=== PATIENT | female | born 1955 | race Caucasian/White ===

== ENCOUNTER 2018-10-23 06:45 | Day surgery (SDC) | payer BC ==
[~2018-10-23 06:45] MED LIST: CEFAZOLIN 2 Gram 2 GM/50 ML BAG IVPB ONE; FAMOTIDINE 20MG TABLET PO ONE; MECLIZINE 25 MG TABLET PO ONE; METOCLOPRAMIDE 10 MG TABLET PO ONE; VANCOMYCIN 1GM/200ML PREMIX 1 GM/200 ML PIGGYBACK IVPB ONE
[2018-10-23] MEDS ORDERED: DEXAMETHASONE 4 MG/ML 1ML VIAL IVP ONE (06:46)
[2018-10-23] MEDS ORDERED: DIPHENHYDRAMINE HCL 50 MG/ML VIAL IVP ONE (06:46)
[2018-10-23] MEDS ORDERED: FENTANYL PF 100MCG/2ML VIAL IV ONE (06:46)
[2018-10-23] MEDS ORDERED: MIDAZOLAM HCL 2MG/2ML VIAL IV ONE (06:46)
[2018-10-23] MEDS ORDERED: LIDOCAINE 2% MDV (20MG/ML) 20ML VIAL IV ONE (06:46)
[2018-10-23] MEDS ORDERED: TRANEXAMIC ACID 1,000 MG/10 ML ML IV ONE ×2 (06:46)
[2018-10-23] MEDS ORDERED: GLYCOPYRROLATE 0.2 MG/ML ML IV ONE (06:46)
[2018-10-23] MEDS ORDERED: PROPOFOL 10 MG/ML VIAL IV ONE (06:46)
[2018-10-23] MEDS ORDERED: ROPIVACAINE HCL (NAROPIN) /PF 5MG/ML 20ML VIAL IV ONE (06:46)
[2018-10-23 07:32] LABS: ABO GROUP O; RH TYPE POSITIVE
[2018-10-23] MEDS: CELECOXIB 100 MG CAPSULE PO ONE ×2 (07:45→07:46)
[2018-10-23 07:46] LABS: ANTIBODY SCREEN NEGATIVE (NEGATIVE)
[2018-10-23] MEDS ORDERED: RINGERS SOLUTION,LACTATED 300 ML IV ONE (09:30)
[2018-10-23] MEDS ORDERED: 0.9 % SODIUM CHLORIDE 1000ML 1,000 ML IV ONE ×3 (09:30→11:01)
[2018-10-23] MEDS ORDERED: RINGERS SOLUTION,LACTATED 1,000 ML IV ONE (09:50)
[2018-10-23] MEDS ORDERED: BUPIVACAINE 0.5% W/EPI MPF 30 ML VIAL SQ ONE (09:59)
[2018-10-23] MEDS ORDERED: MAGNESIUM HYDROXIDE 30 ML UDC PO PRN (11:01)
[2018-10-23] MEDS ORDERED: BISACODYL 10 MG SUPP RC PRN (11:01)
[2018-10-23] MEDS ORDERED: HYDROMORPHONE HCL 2 MG/ML VIAL IM PRN (11:01)
[2018-10-23] MEDS ORDERED: ACETAMINOPHEN W/ CODEINE 300MG/60MG TABLET PO PRN ×2 (11:01)
[2018-10-23] MEDS ORDERED: AL HYDROX/MAG HYDROX 30ML UD PO PRN (11:01)
[2018-10-23] MEDS ORDERED: ONDANSETRON HCL IV 4 MG/2 ML VIAL IVP PRN (11:01)
[2018-10-23] MEDS ORDERED: HYDROCODONE/APAP 10/325 TABLET PO PRN (11:01)
[2018-10-23] MEDS ORDERED: DIPHENHYDRAMINE HCL 25 MG CAPSULE PO PRN (11:01)
[2018-10-23] MEDS ORDERED: TRAMADOL HCL 50 MG TABLET PO PRN (11:01)
[2018-10-23] MEDS ORDERED: ZOLPIDEM TARTRATE 5 MG TABLET PO PRN (11:01)
[2018-10-23] MEDS ORDERED: NALOXONE 0.4 MG/1 ML VIAL IVP PRN (11:01)
[2018-10-23] MEDS ORDERED: ACETAMINOPHEN 325 MG TAB PO PRN (11:01)
[2018-10-23] MEDS ORDERED: KETOROLAC 30 MG/ML VIAL IVP PRN ×2 (11:01)
[2018-10-23] MEDS ORDERED: HYDROMORPHONE HCL 2 MG/ML VIAL IVP ONE ×2 (11:12→11:33)
[2018-10-23] MEDS ORDERED: HYDROMORPHONE HCL 2 MG/ML VIAL IM ONE (11:12)
[2018-10-23] MEDS ORDERED: CEFAZOLIN 2 Gram 2 GM/50 ML BAG IVPB SCH ×2 (11:15→12:30)
[2018-10-23] MEDS ORDERED: RIVAROXABAN 10 MG TABLET PO SCH (11:15)
[2018-10-23] MEDS ORDERED: POTASSIUM CHLORIDE/D5-0.9%NACL 20 MEQ/1,000 ML BAG IV SCH (11:15)
[2018-10-23] MEDS: 0.9 % SODIUM CHLORIDE 500ML 500 ML IV SCH ×2 (12:00→22:19)
[2018-10-23] MEDS ORDERED: PNEUM 23-VAL ADULT IM ONE (12:15)
[2018-10-23] MEDS: HYDROCODONE/APAP 10/325 TABLET PO PRN ×3 (12:48→22:57)
--- NOTE | 2018-10-23 15:47 | Rehab Evaluation ---
Patient Information - Patient Information Diagnosis: L knee OA Ordered Treatment: PT Evaluate and Treat Status: Initial Evaluation Surgery: Yes (L TKA) Date of Surgery: 10/23/18 Past Medical/Surgical Hx: PAST MEDICAL/SURGICAL HISTORY Past Surgical History TONSILS AT AGE 19 C SCOPES PMH - Respiratory Hx Respiratory Disorders Yes Hx Bronchitis Yes: IN THE PAST Hx Sleep Apnea Yes: MILD Hx of CPAP No: NOT NEEDED PER TESTING Comment: ALLERGIES PMH - Cardiovascular Hx Cardiovascular Disorders Yes Hx Hypertension Yes: ON MEDS WITH GOOD CONTROL Exercise Tolerance Good Hx of Migraines Yes: IN THE PAST X'S 2 SINUS RELATED PMH - Neuro Hx Neurological Disorders Yes PMH - GI Hx Gastrointestinal Disorders No PMH - Hx Genitourinary Disorders No Hx Age of Menopause 52 PMH - Endocrine Hx Diabetes Yes: DX'D 2008 Hx of NIDDM Yes Comment: BLOOD SUGARS "GOOD" A1C 6.1 PMH - Musculoskeletal Hx Musculoskeletal Disorders Yes Hx Arthritis Yes: KNEES PMH - Psych Hx Psychiatric Problems No PMH - Hematology/Oncology Hx Hematology/Oncology No Disorders Premorbid Status: Detail (The patient was independent with all mobility prior to surgery) Social History: Detail (The patient lives with spouse in one story house with one step at the enterance and no hand rails. The bathroom is equipped with :a walk in shower and elevated toilet. No grab bars are present in the bathroom. The patient is to borrow a shower bench. The patient has a front wheeled walker, single point cane.) Precautions: [place], Fall, Other (WBAT on the L LE) - Time With Patient Total Time Spent With Patient (Min): 30 Treatment Procedures: Detail (Gait training, Initial Evaluation low complexity) Subjective Information - Subjective Information Per Patient (The patient had no complaints of pain.) Objective Data - Mental Status Patient Orientation: Oriented x3 - Visual Perception Appears within normal limits for therapeutic activities - ROM Not within normal limits (The patient's L knee AROM was limited as to be expected s/p surgery. All other AROM was WNL.) - Strength/Tone Not within normal limits (The patient's L LE strength was not tested s/p surgery however, is functional ie: patient completed a SLR. R LE strength was WFL.) - Bed Mobility Independent (The patient was independent with supine to and from sit transfer and scooting up in bed.) - Transfers Independent (The patient was independent with sit to and from stand transfer.) - Balance Balance Sitting: Good Balance Standing: Good - Sensation Intact - Gait Detail (The patient ambulated with front wheeled walker a distance of 100 feet x 2 WBAT on the L LE with supervision for safety.) Therapy Assessment - Therapy Assessment Detail (The patient was independent with bed mobility, transfers and ambulation. Feel the patient will progress well with mobility.) Problem List - Problem List Physical Therapy Problem List: Detail (1) Decreased L knee AROM as to be expected following surgery. 2) Decreased L LE strength as to be expected following surgery.) Goals - Goals Physical Therapy Goals: 1) The patient will ambulate on stairs with supervision for safety only using proper technique. 2) The patient will be independent with TKA HEP. Prognosis - Prognosis Good Plan - Plan Physical Therapy Plan: 1-2 sessions for gait training on stairs and instruction in HEP.
[2018-10-23] MEDS: CEFAZOLIN 2 Gram 2 GM/50 ML BAG IVPB SCH (17:30)
[2018-10-23] MEDS ORDERED: TRAZODONE 50 MG TABLET PO SCH (22:00)
[2018-10-23] MEDS: CALCIUM CARB/VITAMIN D 500MG/200IU PO SCH (22:13)
[2018-10-23] MEDS: DOCUSATE SODIUM 100 MG CAPSULE PO SCH (22:13)
[2018-10-23] MEDS: BUSPIRONE 5 MG TABLET PO SCH (22:13)
[2018-10-24] MEDS: CEFAZOLIN 2 Gram 2 GM/50 ML BAG IVPB SCH ×2 (01:44→10:21)
[2018-10-24] MEDS: HYDROCODONE/APAP 10/325 TABLET PO PRN ×3 (03:56→12:40)
[2018-10-24 06:53] LABS: HEMATOCRIT 33.2 % (35.0-47.0); HEMOGLOBIN 10.5 gm/dl (11.6-16.0)
[2018-10-24 07:11] LABS: CREATININE 1.3 mg/dL (0.5-0.9)
[2018-10-24] MEDS: 0.9 % SODIUM CHLORIDE 500ML 500 ML IV SCH (07:34)
--- NOTE | 2018-10-24 08:02 | Rehab Evaluation ---
Patient Information - Patient Information Diagnosis: L knee OA Ordered Treatment: OT Evaluate and Treat Status: Initial Evaluation Surgery: Yes (L TKA) Date of Surgery: 10/23/18 Past Medical/Surgical Hx: PAST MEDICAL/SURGICAL HISTORY Past Surgical History TONSILS AT AGE 19 C SCOPES PMH - Respiratory Hx Respiratory Disorders Yes Hx Bronchitis Yes: IN THE PAST Hx Sleep Apnea Yes: MILD Hx of CPAP No: NOT NEEDED PER TESTING Comment: ALLERGIES PMH - Cardiovascular Hx Cardiovascular Disorders Yes Hx Hypertension Yes: ON MEDS WITH GOOD CONTROL Exercise Tolerance Good Hx of Migraines Yes: IN THE PAST X'S 2 SINUS RELATED PMH - Neuro Hx Neurological Disorders Yes PMH - GI Hx Gastrointestinal Disorders No PMH - Hx Genitourinary Disorders No Hx Age of Menopause 52 PMH - Endocrine Hx Diabetes Yes: DX'D 2008 Hx of NIDDM Yes Comment: BLOOD SUGARS "GOOD" A1C 6.1 PMH - Musculoskeletal Hx Musculoskeletal Disorders Yes Hx Arthritis Yes: KNEES PMH - Psych Hx Psychiatric Problems No PMH - Hematology/Oncology Hx Hematology/Oncology No Disorders Premorbid Status: Detail (The patient was independent with all mobility, meal prep, laundry and home mgmt tasks prior to surgery) Social History: Detail (The patient lives with spouse in one story house with one step at the entrance and no hand rails. The bathroom is equipped with a walk in shower and elevated toilet. No grab bars are present in the bathroom. The patient is planning to borrow a shower bench. The patient has a front wheeled walker and a single point cane. Her spouse will be assisting with laundry and meal prep after discharge.) Precautions: [place], Fall, Other (WBAT on the L LE) - Time With Patient Total Time Spent With Patient (Min): 35 Treatment Procedures: Detail (OT eval low complexity) Subjective Information - Subjective Information Per Patient Objective Data - Pain Pain Present: Yes (09/24) - Mental Status Patient Orientation: Oriented x3 - Visual Perception Appears within normal limits for therapeutic activities - ROM Within normal limits (Simon UE AROM WNL) - Strength/Tone Within normal limits (Simon UE strength WNL) - Coordination Appears within normal limits for therapeutic activities - Bed Mobility Independent (Ind with supine to sit) - Transfers Independent (Ind with sit to stand from EOB and chair heights.) - Balance Balance Sitting: Good Balance Standing: Good - Sensation Intact - Gait Detail (Pt ambulating in room with 2 wheeled walker Indly.) - ADL's/IADL's Detail (Pt educated and able to demonstrate learning of modified LE dressing techniques including doffing slipper socks and briefs and donning underwear and slip on shoes. Reviewed kitchen and shower safety and modifications, pt verbalized understanding.) Therapy Assessment - Therapy Assessment Detail (Pt is Ind with modified LE dressing techniques.) Problem List - Problem List Physical Therapy Problem List: Detail (1) Decreased L knee AROM as to be expect ed following surgery. 2) Decreased L LE strength as to be expected following surgery.) Occupational Therapy Problem List: Detail (No current IP OT problems identified.) Goals - Goals Physical Therapy Goals: 1) The patient will ambulate on stairs with supervision for safety only using proper technique. 2) The patient will be independent with TKA HEP. Occupational Therapy Goals: No current IP OT goals identified. Prognosis - Prognosis Good Plan - Plan Physical Therapy Plan: 1-2 sessions for gait training on stairs and instruction in HEP. Occupational Therapy Plan: No further IP OT recommended. Thank you for this referral.
[2018-10-24] MEDS ORDERED: RIVAROXABAN 10 MG TABLET PO SCH (10:00)
[2018-10-24] MEDS ORDERED: FERROUS SULFATE 325 MG TAB PO SCH (10:00)
[2018-10-24] MEDS: CALCIUM CARB/VITAMIN D 500MG/200IU PO SCH (10:21)
[2018-10-24] MEDS: BUSPIRONE 5 MG TABLET PO SCH (10:22)
[2018-10-24] MEDS: DOCUSATE SODIUM 100 MG CAPSULE PO SCH (10:22)
--- NOTE | 2018-10-24 10:45 | Physical Therapy Tx Note ---
Physical Therapy Tx Note - Treatment Note Tolerated: Good Total Time Spent With Patient: 25 Physical Therapy Tx Note: Detail (The patient was in bathroom when PT arrived. The patient was independent with toilet transfer. The patient ambulated independently with front wheeled walker WBAT on the L LE a distance of 102 feet x 1. The patient ambulated on 3 steps with present with use of one railing with supervision for safety. The paient completed TKA HEP including seated heel slides, ankle pumps, quad sets, hamstring sets, gluteal sets and SLR. The patient has met all inpatient PT goals and is discharged from inpatient PT.) Physical Therapy Problem List: Detail (1) Decreased L knee AROM as to be expected following surgery. 2) Decreased L LE strength as to be expected following surgery.) Physical Therapy Goals: 1) The patient will ambulate on stairs with supervision for safety only using proper technique.(Goal Met). 2) The patient will be independent with TKA HEP.(Goal Met) Physical Therapy Plan: The patient has met all inpatient PT goals and is discharged from inpatient PT. The patient is to receive Home PT.
--- NOTE | 2018-10-24 13:50 | Operative Note ---
DATE OF SURGERY: 10/23/2018 PREOPERATIVE DIAGNOSIS: End-stage arthrosis of the left knee. POSTOPERATIVE DIAGNOSIS: End-stage arthrosis of the left knee. OPERATION: Cemented left total knee arthroplasty using [employer] Ashley II components with a size 5 Oxinium femur, a size 4 stemmed tibia baseplate, a 9 mm lipped highly crosslinked tibial insert, and a 35 mm all-plastic patella. STAFF SURGEON: Oliverio Murphy MD ANESTHESIA: Spinal. PREPARATION: Chloraprep. INDIVIDUAL CONSIDERATIONS: None. ROTARY FILTER OPERATOR: Mrs. Yarely Rivero PROCEDURE: The patient was taken to the operating room, placed supine on the operating room table. She had a successful induction of a spinal anesthetic. The left lower extremity was prepped and draped in the usual fashion. The limb was elevated and tourniquet was inflated to 250 mmHg. The patient had a midline approach to the knee. Sharp dissection carried down through skin and subcutaneous tissue. Small veins were coagulated with a Bovie. A medial arthrotomy was performed. The patella was everted and the knee was flexed. The patient had exposed bone in medial and patellofemoral compartments. Fat pad was resected, ACL was sacrificed, and provisional anterior meniscectomies were performed. The capsule was released from the medial proximal tibia. The initial femoral dispatcher ship pilot hole was then made freehand. The intramedullary femoral cutting jig was placed. It was cut in 7.0 degrees of valgus and adjusted for rotation and secured with pins for a 10 mm resection. The initial transverse cut was then made. The skin guide was placed in the anterior and posterior dispatcher ship pilot holes. It was found that a size 5 would be appropriate. The anterior and posterior cuts followed by chamfer cuts were made. Osteophytes removed, and a size 5 trial was placed and found to fit well. The tibia was brought forward, and the remainder of the meniscal remnants removed with a Bovie. The extraarticular tibial cutting jig was placed. It was cut in neutral with a 3-degree AP slope. Care was taken to adjust for rotation and flexion using the extraarticular alignment guide and bony landmarks. It was set for a 9 mm resection keyed off the high lateral side and secured with pins. When cutting the tibia, care was taken to preserve the PCL insertion on the tibia. Large medial osteophytes removed, and I found that a size 4 baseplate would fit appropriately. It was adjusted for rotation and secured with pins. With a 9 mm trial and femoral trial, there was excellent motion and stability, ligamentous balance, and rotation alignment were thought to be normal. Femoral dispatcher ship pilot holes were impacted and the tri-flange tibial stamp was impacted, and these trial components were removed. The patient had a thick patella and roughly 9 mm was removed freehand. I was able to fit a 35 patella. The 3 dispatcher ship pilot holes were drilled. The tourniquet was let down briefly to get bleeders posteriorly and then placed back up again. The knee was then thoroughly irrigated out with pulsatile Betadine and saline to remove any visual or palpable debris. Bony surfaces were then dried. A size 4 stemmed tibia baseplate was cemented into place followed by impaction of the 9 mm highly crosslinked tibial insert followed by cementing in the size 5 Oxinium femoral component followed by cementing in the 32 mm all-plastic patella. The implant surfaces were compressed, excess cement was removed. After the cement had set, there was excellent motion and stability, ligamentous balance, rotation alignment, and patellofemoral tracking were normal. No lateral release was required. Again after irrigation, tourniquet was let down and hemostasis was obtained with a Bovie. The capsule and periosteum were infiltrated with 30 mL of 0.5% Marcaine with epinephrine. The capsule was then closed with a running #2 quill, subcu was closed in layers with running 0 quill, skin was closed with rosenda. Then 1 g of tranexamic acid was mixed with 30 mL of saline and was injected into the knee through a sterile 18-gauge needle, and a sterile bulky compressive RAIMUNDO-type dressing was applied. The patient tolerated the procedure well. Needle and sponge counts were correct. Estimated blood loss was minimal, and she was taken back to recovery in good condition. There were no complications. JOSE LUIS
[2018-10-25] MEDS ORDERED: METFORMIN 500 MG TABLET PO SCH (08:00)
== END 2018-10-24 13:00 | disposition home health service (06) ==
LOC: SUR 06:45 → MEDSURG 11:41 → SUR 10-24 13:00
PROVIDERS: ATTEND Orthopaedic Surgery
DX: M17.11 Unilateral primary osteoarthritis, right knee (principal); E11.9 Type 2 diabetes mellitus without complications; G47.33 Obstructive sleep apnea (adult) (pediatric)
CPT/HCPCS: 27447; 01402; 64447; 85018; 85014; 80048; 36416; 82948; 86900; 86901; 86850; 94760; J1885; J3010; J1170; J0690 ×2; J3490 ×3; J2795; J3370; 76942; J1200; J7030; J7040; J7120

== ENCOUNTER → 2019-03-20 | Day surgery (SDC) | payer BC ==
[~2019-03-20] MED LIST changes: +ACETAMINOPHEN 1,000 MG/100 ML BTL IV ONE; -CEFAZOLIN 2 Gram 2 GM/50 ML BAG IVPB ONE; +DIAZEPAM 5 MG TABLET PO ONE; -FAMOTIDINE 20MG TABLET PO ONE; -MECLIZINE 25 MG TABLET PO ONE; -METOCLOPRAMIDE 10 MG TABLET PO ONE; -VANCOMYCIN 1GM/200ML PREMIX 1 GM/200 ML PIGGYBACK IVPB ONE
== END | disposition home or self-care (01) ==
LOC: SUR 11:00
PROVIDERS: ATTEND Orthopaedic Surgery
DX: Z53.9 Procedure and treatment not carried out, unspecified reason (principal)
CPT/HCPCS: 36416; 82948